=== PATIENT | male | born 1990 | race Hispanic/Latino ===

== ENCOUNTER 2017-05-03 19:41 | Emergency (ER) | payer OTHER ==
[~2017-05-03] VITALS: Ht 177.8 cm; Wt 75.0 kg
[2017-05-03] MEDS ORDERED: BACTRIM 160MG/800MG DS TAB PO ONE (21:00)
[2017-05-03] MEDS ORDERED: BACT800T5 PO (21:09)
[2017-05-03 22:09] VITALS: BP 119/76
== END 2017-05-03 22:37 | disposition home or self-care (01) ==
LOC: M ED 19:41
DX: L02.416 Cutaneous abscess of left lower limb (principal)